=== PATIENT | male | born 1970 | race Caucasian/White ===

== ENCOUNTER 2020-01-30 13:16 | Emergency (ER) | payer SELFPAY ==
[2020-01-30 13:38] VITALS: BP 116/77; PULSE 87; RESP 14; TEMP 35.7; O2SAT 95; BMI 28.0
== END 2020-01-30 15:37 | disposition left against medical advice (07) ==
PROVIDERS: Emergency Provider Family Medicine
DX: Z53.21 Procedure and treatment not carried out due to patient leaving prior to being seen by health care provider (principal)
CPT/HCPCS: 99281